=== PATIENT | male | born 1945 | race Caucasian/White ===

== ENCOUNTER 2018-12-28 15:29 | Outpatient (REF) | payer MEDICARE, MEDICAID, SELFPAY ==
[2018-12-28 21:21] LABS: ALT 34 U/L (12-78); Anion Gap 12.2 mmol/L (3-11); BUN 47 mg/dL (7-18); CO2 23.8 mmol/L (21.0-32.0); CREATININE 2.09 mg/dL (0.70-1.30); Calcium 8.4 mg/dL (8.5-10.1); Chloride 103 mmol/L (98-107); Estimated GFR 31.37 (mL/min/1.73m2); Glucose 179 mg/dL (70-100); LDL CHOLESTEROL 64 mg/dL (<100); Potassium 4.3 mmol/L (3.5-5.1); Sodium 139 mmol/L (136-145)
== END 2018-12-28 15:49 ==
LOC: NCHCN 15:29
PROVIDERS: PCP Physician Assistant; Visit Provider Internal Medicine
DX: E11.9 Type 2 diabetes mellitus without complications (principal); I10 Essential (primary) hypertension; M19.019 Primary osteoarthritis, unspecified shoulder; M54.5 Low back pain
CPT/HCPCS: 80048; 83721; 84460

== ENCOUNTER 2020-01-17 19:09 | Outpatient (REF) | payer MEDICARE, MEDICAID, SELFPAY ==
[2020-01-17 20:49] LABS: HCT 33.3 % (40.0-50.0); HGB 10.8 g/dL (13.5-17.5); Mean Corp. HGB Concentration 32.4 g/dL (32.0-36.0); Mean Corpuscular Volume 89.3 fL (80-95); Mean Platelet Volume 11.3 fL (8.0-11.0); Platelet Count 235 x1000/uL (130-400); RBC 3.73 m/cumm (4.50-6.00); RBC Distribution Width 13.4 % (11.8-14.1)
[2020-01-17 21:20] LABS: Iron 78 ug/dL (65-175)
[2020-01-17 21:28] LABS: ALT 44 U/L (16-63); BUN 34 mg/dL (7-18); CREATININE 1.79 mg/dL (0.70-1.30); Calcium 8.4 mg/dL (8.5-10.1); Chloride 104 mmol/L (98-107); Estimated GFR 37.41 (mL/min/1.73m2); Ferritin 88 ng/mL (26-388); Glucose 102 mg/dL (74-106); LDL CHOLESTEROL 64 mg/dL (<100); Potassium 4.5 mmol/L (3.5-5.1); Sodium 141 mmol/L (136-145)
== END 2020-01-17 19:29 ==
LOC: NCHCN 19:09
PROVIDERS: PCP Physician Assistant; Visit Provider Internal Medicine
DX: E11.9 Type 2 diabetes mellitus without complications (principal); I10 Essential (primary) hypertension; D50.9 Iron deficiency anemia, unspecified; M54.12 Radiculopathy, cervical region
CPT/HCPCS: 80048; 83721; 85027; 82728; 83540; 84460

== ENCOUNTER 2020-07-17 14:51 | Outpatient (REF) | payer MEDICARE, SELFPAY ==
[2020-07-17 21:25] LABS: COMMENT (LAB VIEW ONLY) 81.98 mg/dL; Microalb ug/mg Crea 41.5 ug/mg Cr
== END 2020-07-17 15:11 ==
LOC: NCHCN 14:51
PROVIDERS: PCP Physician Assistant; Visit Provider Internal Medicine
DX: E11.9 Type 2 diabetes mellitus without complications (principal)
CPT/HCPCS: 82043; 82570

== ENCOUNTER 2020-11-14 14:21 | Outpatient (REF) | payer MEDICARE, SELFPAY ==
[2020-11-14 18:27] LABS: ALT 33 U/L (16-63); Anion Gap 8.8 mmol/L (3-11); BUN 34 mg/dL (7-18); CO2 26.2 mmol/L (21.0-32.0); CREATININE 1.6 mg/dL (0.70-1.30); Chloride 103 mmol/L (98-107); Estimated GFR 42.46 (mL/min/1.73m2); Glucose 154 mg/dL (74-106); Sodium 138 mmol/L (136-145); Uric Acid 6.3 mg/dL (3.5-7.2)
[2020-11-14 18:39] LABS: LDL CHOLESTEROL 72 mg/dL (<100)
== END 2020-11-14 14:22 | disposition home or self-care (01) ==
LOC: NCHCN 14:21
PROVIDERS: PCP Physician Assistant; Visit Provider Internal Medicine
DX: I10 Essential (primary) hypertension (principal); N18.30 Chronic kidney disease, stage 3 unspecified
CPT/HCPCS: 80048; 83721; 84460; 84550

== ENCOUNTER 2021-12-31 20:33 | Outpatient (REF) | payer MEDICARE, SELFPAY ==
[2021-12-31 20:53] LABS: HCT 36.7 % (40.0-50.0); HGB 12.1 g/dL (13.5-17.5); MCH 29.1 pg (27.0-33.0); MCV 88 fL (80-95); Platelet Count 205 10^3/uL (130-400); RBC 4.16 10^6/uL (4.36-5.78); RDW 13.2 % (11.8-14.1); RDW-SD 42.6 fL
[2021-12-31 21:18] LABS: BUN 43 mg/dL (7-18); Calcium 9.2 mg/dL (8.5-10.1); Chloride 105 mmol/L (98-107); Estimated GFR 32.74 (mL/min/1.73m2); Glucose 125 mg/dL (74-106); Potassium 4.7 mmol/L (3.5-5.1); Sodium 139 mmol/L (136-145)
[2021-12-31 21:28] LABS: LDL CHOLESTEROL 89 mg/dL (<100)
== END 2021-12-31 20:34 | disposition home or self-care (01) ==
LOC: NCHCN 20:33
PROVIDERS: PCP Physician Assistant; Visit Provider Internal Medicine
DX: E11.9 Type 2 diabetes mellitus without complications (principal); I10 Essential (primary) hypertension; N18.30 Chronic kidney disease, stage 3 unspecified
CPT/HCPCS: 80069; 83721; 85027

== ENCOUNTER 2022-01-26 08:52 | Outpatient (CLI) | payer MEDICARE, SELFPAY ==
--- NOTE | 2022-01-26 08:45 | RT.EKG_ITS ---
APPROVED REPORT Exam: Resting ECG Reason for Exam: HF Patient Location: O HR:86 bpm ECG Measurements Heart Rate 86 AXIS DE 183 P 30 QRSd 142 QRS -29 QT 394 T 97 QTc 472 Conclusion Sinus rhythm...normal P axis, V-rate 50- 99 Probable left atrial enlargement...P >50mS, <-0.10mV V1 Left bundle branch block...QRSd>120, broad/notched R
== END 2022-01-26 08:53 | disposition home or self-care (01) ==
LOC: DI.CARD 08:53
PROVIDERS: PCP Physician Assistant; Visit Provider Internal Medicine Cardiovascular Disease
DX: I21.3 ST elevation (STEMI) myocardial infarction of unspecified site (principal); I50.9 Heart failure, unspecified
CPT/HCPCS: 93010

== ENCOUNTER → 2022-01-26 12:56 | Outpatient (BNVA) | payer MEDICARE, SELFPAY | PROVIDERS: PCP Physician Assistant; Referring Provider Physician Assistant; Visit Provider Internal Medicine Cardiovascular Disease | DX: I12.9 Hypertensive chronic kidney disease with stage 1 through stage 4 chronic kidney disease, or unspecified chronic kidney disease (principal); I25.2 Old myocardial infarction; I50.9 Heart failure, unspecified; N18.30 Chronic kidney disease, stage 3 unspecified; I42.9 Cardiomyopathy, unspecified; E11.9 Type 2 diabetes mellitus without complications; E78.5 Hyperlipidemia, unspecified | CPT/HCPCS: 93005; 99203; 99204 ==

== ENCOUNTER → 2022-02-12 01:34 | Outpatient (CLI) | payer MEDICARE, SELFPAY ==
--- NOTE | 2022-02-12 | DI.US_ITS ---
APPROVED REPORT EXAM: Comprehensive 2D, Doppler, and color-flow Echocardiogram Patient Location: Out-Patient Pipe Insulator Helper: Poly Solitario RDCS (AE) Indications: Acute STEMI Other Information Study Quality: Fair. Technically limited study due to body habitus. Conclusion Left ventricle is mildly to moderately dilated. Estimated ejection fraction is 30%. There are segme ntal wall motion abnormalities as noted above Right ventricle is not well visualized Device lead noted in the right heart The left atrium is mildly dilated. The right atrium is normal in size The aortic valve is sclerotic with trace regurgitation Mitral annular calcification with mild to moderate eccentric mitral regurgitation Normal tricuspid valve with trace regurgitation Wall motion Left Ventricle Left ventricle is mild to moderately dilated. Left ventricular systolic function is moderately to sev erely decreased. There is normal left ventricular wall thickness. Basal septum and anterior wall move s best, elsewhere severe hypo to akinesis There is no ventricular septal defect visualized. LVEF is 3 0%. Right Ventricle Right ventricle is not well visualized. Right ventricular systolic function could not be assessed. Th e RVSP is 23.5mmHg. Device lead is present in the right ventricle. Atria Left atrium is mildly dilated. The right atrium size is normal. The interatrial septum is intact with no evidence for an atrial septal defect. Aortic Valve The Aortic valve is sclerotic. Aortic valve is trileaflet. There is no aortic valvular stenosis. Trac e aortic regurgitation. Mitral Valve Mild mitral annular calcification. No evidence of mitral valve stenosis. Mild to moderate eccentric m itral regurgitation. Tricuspid Valve The tricuspid valve is normal in structure. There is no tricuspid valve stenosis. Trace tricuspid reg urgitation. Pulmonic Valve The pulmonary valve is normal in structure. There is no pulmonic valvular stenosis. Trace pulmonic re gurgitation. Great Vessels The aortic root is normal in size. Ascending aorta is not well visualized. Aortic arch is not well vi sualized. IVC is normal in size and collapses >50% with inspiration. Pericardium There is no pericardial effusion. 2D Dimensions IVSD d PLAX 1.03 cm M: 0.6-1.2 LV Vol A2C d MOD 226.7 mL LVPW d PLAX 1.02 cm M: 0.6 - 1.2 LV Vol A4C d MOD 242.1 mL LVID d PLAX 6.22 cm M: 4.2 - 5.8 LA vol/ BSA A2C s A-L 34.2 mL/m2 LVDs 5.35 cm M: 2.5 - 4.0 LA vol/ BSA A4C s A-L 30.6 mL/m2 Ao Root d 2.61 cm M: 3.1 - 3.7 LA Vol/ BSA Biplane s A-L 34.3 mL/m2 RA Area A4C 12.23 cm2 LA Area A4C s MOD 17.71 cm2 RA Vol/ BSA A4C s A-L 16.2 mL/m2 LA Area A2C s MOD 17.66 cm2 LV EF Teichholz 28.1 % LV EF A4C MOD 30.5 % LVEF (Orozco's) 30.83 % M: 52 - 72 LV EF A2C MOD 30.8 % LV Volume 189.42 mL M: 62 - 150 LV EF Biplane MOD 30.8 % LV Volume Index 108.86 mL/m2 M: 34 - 74 SV 74.19 mL LV Vol Biplane MOD 240.7 mL SV Index 42.59 mL/m2 FS 13.35 % M-Mode TAPSE 2.57 cm (M/F) >1.7 LV Diastology MV E' medial 0.041 (>0.07 m/s) E/A Ratio 0.7 LV E/e MED 18.30 (<14) MV E Vmax 0.75 (0.4-1.3 m/s) MV E' lateral 0.034 (>0.1 m/s) MV A Vmax 1.15 (0.4-1.3 m/s) LV E/e LAT 21.95 (<14) MV E/A Ratio 0.65 MV E/E' medial 18.30 MV E/E' lateral 21.96 Aortic Valve LVOT Area 3.00 cm2 AoV Area Vmax 2.56 cm2 LVOT Vmax 1.34 m/s AoV Area/ BSA (Vmax) 1.47 cm2/m2 LVOT Mean Deandre. 0.77 m/s DOLLY Mean Deandre. 2.13 cm2 LVOT Peak Grad 7.1 mmHg DOLLY Mean Deandre. Index 1.22 cm2/m2 LVOT Mean Grad 2.9 mmHg AR DT 2742 msec LVOT VTI 0.241 m AR PHT 795 msec LVOT Diam s 1.95 cm AoV Vmax 1.56 m/s Velocity Ratio 0.85 AoV Mean Deandre. 1.08 m/s AoV Peak Grad 9.8 mmHg LVOT SV 72.16 mL AoV Mean Grad 5.2 mmHg AoV VTI 0.291 m AoV Area VTI 2.48 cm2 AoV Area/ BSA (VTI) 1.42 cm/m2 Mitral Valve MV DT 210 (160-240 msec) MR Vmax 4.60 m/s MV PHT 61 msec MR VTI 1.689 m MV Area PHT 3.61 cm2 MR Peak Grad 84.5 mmHg MV VTI 0.385 m MR Mean Grad 47.2 mmHg MV VTI Annulus 0.353 m MR PISA Radius 0.48 cm MV Area VTI 1.73 (4.0-6.0 cm2) MR EROA 0.11 cm2 MR Aliasing Velocity 0.35 m/s MR PISA 1.47 cm2 Pulmonary Valve PV Vmax 1.00 (0.5-1.5 m/s) RVOT Peak Gr. 3.05 mmHg PV Peak Grad 4.0 mmHg RVOT Mean Gr. 1.70 mmHg PV Mean Grad 2.0 mmHg RVOT VTI 0.186 m PV VTI 0.199 m RVOT Vmax 0.87 m/s Tricuspid Valve TR Peak Grad 20.5 mmHg TR Vmax 2.27 m/s RA Pressure 3.00 mmHg RVSP (TR) 23.5 mmHg
== END ==
PROVIDERS: PCP Internal Medicine; Visit Provider Internal Medicine
DX: I21.3 ST elevation (STEMI) myocardial infarction of unspecified site (principal)
CPT/HCPCS: 93306

== ENCOUNTER 2023-01-11 16:00 | Outpatient (REF) | payer MEDICARE, SELFPAY ==
[2023-01-11 19:27] LABS: HCT 37.9 % (40.0-50.0); HGB 12.1 g/dL (13.5-17.5); MCH 27.9 pg (27.0-33.0); MCHC 31.9 % (32.0-36.0); MCV 88 fL (80-95); MPV 11.2 fL (8.0-11.0); Platelet Count 208 10^3/uL (130-400); RBC 4.33 10^6/uL (4.36-5.78); RDW 13.1 % (11.8-14.1); WBC 8.71 10^3/uL (4.4-10.8)
[2023-01-11 19:41] LABS: ALT 23 U/L (16-63); Anion Gap 10.8 mmol/L (3-11); BUN 35 mg/dL (7-18); CO2 24.2 mmol/L (21.0-32.0); CREATININE 1.8 mg/dL (0.70-1.30); Calcium 8.9 mg/dL (8.5-10.1); Calculated LDL 57 mg/dL (<100); Chloride 103 mmol/L (98-107); Cholesterol 142 mg/dL (<200); Estimated GFR 38.53 (mL/min/1.73m2); Glucose 194 mg/dL (74-106); HDL Cholesterol 32 mg/dL (40-60); Potassium 4.7 mmol/L (3.5-5.1); Sodium 138 mmol/L (136-145); Triglyceride 265 mg/dL (<150)
[2023-01-11 19:56] LABS: COMMENT (LAB VIEW ONLY) 47.68 mg/dL; Microalb ug/mg Crea 97.7 ug/mg Cr
[2023-01-13 13:41] LABS: Albumin 57.7 % (55.8-66.1); Albumin g/dL 4.1 g/dL (3.6-5.2); Total Protein 7.1 g/dL (6.3-8.2)
[2023-01-13 15:49] LABS: Albumin, Urine % 27.7 %; Albumin, Urine mg/dL 5 mg/dL; Globulins, Urine % 72.3 %; Globulins, Urine mg/dL 13 mg/dL; Immunotyping, Urine (See Note); Total Protein Urine 18 mg/dL (See Note)
== END 2023-01-11 16:01 | disposition home or self-care (01) ==
LOC: NCHCN 16:00
PROVIDERS: PCP Internal Medicine; Visit Provider Internal Medicine
DX: N18.30 Chronic kidney disease, stage 3 unspecified (principal); I25.10 Atherosclerotic heart disease of native coronary artery without angina pectoris; E78.5 Hyperlipidemia, unspecified; E11.9 Type 2 diabetes mellitus without complications
CPT/HCPCS: 80048; 80061; 84156; 84166; 85027; 86335; 82043; 82570; 84165; 84460